=== PATIENT | female | born 1985 | race Caucasian/White ===

== ENCOUNTER 2017-05-19 17:45 | Emergency (ER) | payer BC ==
[2017-05-19 18:02] VITALS: BP 126/91
--- NOTE | 2017-05-19 20:06 | EDM.PDOCBH ---
ED HPI GENERAL MEDICAL PROBLEM - General Chief Complaint: Drug or Alcohol Abuse Stated Complaint: INSOMNIA Time Seen by Provider: 05/19/17 19:15 Source of Information: Reports: Patient History Limitations: Reports: No Limitations - History of Present Illness INITIAL COMMENTS - FREE TEXT/NARRATIVE: Patient is a 31-year-old female who presents to the ED unable to sleep. Patient states approximately 2 weeks ago she stopped Ativan. Patient was taking 1 mg at bedtime for 7 years. States 5 weeks ago they started weaning her off because the patient was wanting to go homeopathic. Since completely stopping the Ativan patient has not been sleeping well at night. She's feeling tremulous and anxious and feels like her heart is beating out of her chest at times. 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 She denies any excessive caffeine use. She does not smoke. She also does not use alcohol on a routine basis. She was smoking marijuana every day up until New Year's when you stopped. She is requesting I contact her PCP to discuss plan for further treatment. - Related Data Allergies Allergy/AdvReac Type Severity Reaction Status Date / Time amoxicillin trihydrate Allergy Rash Verified 05/19/17 17:57 [From Augmentin] codeine Allergy Rash Verified 05/19/17 17:57 potassium clavulanate Allergy Rash Verified 05/19/17 17:57 [From Augmentin] Home Meds: Home Meds Multivitamin [Multivitamins] 1 tab PO DAILY 06/11/14 [History] Calcium Carbonate [Calcium] 1 tab PO DAILY 12/16/15 [History] L.acidoph,Paracasei, B.lactis [Probiotic] 1 cap PO DAILY 12/16/15 [History] Ibuprofen [IJD: Ibuprofen] 600 mg PO Q4H PRN #30 tablet 12/17/15 [Rx] Citalopram Hydrobromide [Celexa] 10 mg PO DAILY #30 tablet 05/19/17 [Rx] QUEtiapine Fumarate [Seroquel Xr] 50 mg PO BEDTIME #30 tab.er.24h 05/19/17 [Rx] Tyrosine [l-Tyrosine] 1,000 mg PO DAILY 05/19/17 [History] Ubidecarenone [Co Q-10] 150 mg PO DAILY 05/19/17 [History] Past Medical History Psychiatric History: Reports: Anxiety - Past Surgical History HEENT Surgical History: Reports: Adenoidectomy, Tonsillectomy Female Surgical History: Reports: [place] Social & Family History - Tobacco Use Smoking Status *Q: Never Smoker Used Tobacco, but Quit: Yes Second Hand Smoke Exposure: No - Caffeine Use Caffeine Use: Reports: Coffee, Soda - Alcohol Use Days Per Week of Alcohol Use: 0 Number of Drinks Per Day: 0 Total Drinks Per Week: 0 - Recreational Drug Use Recreational Drug Use: Yes Drug Use in Last 12 Months: No Recreational Drug Type: Reports: Marijuana/Hashish Recreational Drug Use Frequency: Daily ED ROS GENERAL - Review of Systems Review Of Systems: ROS reveals no pertinent complaints other than HPI. ED EXAM, BEHAVIORAL HEALTH - Physical Exam Exam: See Below Exam Limited By: No Limitations General Appearance: Alert, WD/WN, Anxious Ears: Hearing Grossly Normal Nose: Normal Inspection Throat/Mouth: Normal Voice, No Airway Compromise Neck: Normal Inspection, Supple Respiratory/Chest: No Respiratory Distress, Lungs Clear, Normal Breath Sounds, No Accessory Muscle Use Cardiovascular: Normal Peripheral Pulses, Regular Rate, Rhythm, No Murmur Extremities: Normal Inspection Neurological: Alert, Normal Mood/Affect, CN II-XII Intact, Normal Cognition, No Motor/Sensory Deficits, Oriented x 3 Psychiatric: Alert, Normal Affect, Normal Cognition, Normal Mood, Oriented Skin Exam: Warm, Dry, Intact, Normal color COURSE, BEHAVIORAL HEALTH COMP - Course Vital Signs: Last Vital Signs Temp 98.1 F 05/19/17 17:57 Pulse 105 H 05/19/17 17:57 Resp 13 05/19/17 17:57 BP 126/91 H 05/19/17 17:57 Pulse Ox 100 05/19/17 17:57 Orders, Labs, Meds: Active Orders 24 hr Category Date Time Status EKG Documentation Completion [RC] STAT Care 05/19/17 20:06 Active Re-Assessment/Re-Exam: Spoke with patient's PCP Rebecca Levin have decided to start the patient on Celexa 10 mg every day and Seroquel 50 mg at at bedtime. Have patient call her office next week to see how she is doing and schedule follow-up appointment. Will obtain EKG due to combination of these two medications may cause QT prolongation. EKG sinus rhythm at a rate of [address] changes noted. [place] interval 137. QTC 423. Discussed this with the patient in great detail to which she has agreed. Discharge instructions as documented. Prescriptions provided. Departure - Departure Time of Disposition: 19:56 Disposition: Home, Self-Care 01 Condition: Good Clinical Impression: Anxiety - Discharge Information Prescriptions: Citalopram Hydrobromide [Celexa] 10 mg PO DAILY #30 tablet QUEtiapine Fumarate [Seroquel Xr] 50 mg PO BEDTIME #30 tab.er.24h Referrals: Rebecca Morse PA [Primary Care Provider] - Additional Instructions: As discussed will start you on Celexa 10 mg every day and also Seroquel 50 mg at at bedtime. Refrain from alcohol use. Call your primary care provider this coming week to schedule follow-up appointment. Seroquel may cause increased drowsiness so no driving after taking this medication. Return to the ED if you develop any new or worsening symptoms. - My Orders Last 24 Hours: My Active Orders 05/19/17 20:06 EKG Documentation Completion [RC] STAT - Assessment/Plan Last 24 Hours: My Active Orders 05/19/17 20:06 EKG Documentation Completion [RC] STAT
== END 2017-05-19 20:30 | disposition home or self-care (01) ==
LOC: JD.ED 17:45
DX: F41.9 Anxiety disorder, unspecified (principal); Z87.891 Personal history of nicotine dependence; Z79.899 Other long term (current) drug therapy; Z88.1 Allergy status to other antibiotic agents; Z88.5 Allergy status to narcotic agent
CPT/HCPCS: 93005; 99283-25; 99284

== ENCOUNTER 2022-11-09 11:12 | Emergency (ER) | payer BC ==
[2022-11-09] MEDS ORDERED: Ondansetron 4 MG/2 ML SDV IVPUSH ONE (12:10)
[2022-11-09] MEDS ORDERED: Sodium Chloride 0.9% 10 ML Syringe FLUSH PRN (12:10)
[2022-11-09] MEDS ORDERED: Sodium Chloride 0.9% 1,000 ML IV SCH (12:15)
[2022-11-09 12:38] LABS: BASOPHILS ABSOLUTE AUTO 0.02 K/mm3 (0.01-0.08); BASOPHILS PERCENT AUTO 0.4 % (0.1-1.2); EOSINOPHILS ABSOLUTE AUTO 0.12 K/mm3 (0.04-0.36); EOSINOPHILS PERCENT AUTO 2.5 (0.7-5.8); HEMATOCRIT 41.6 % (34.1-44.9); HEMOGLOBIN 13.6 gm/dl (11.2-15.7); IMMATURE GRAN ABSOLUTE AUTO 0.01 K/mm3 (0.00-0.10); IMMATURE GRAN PERCENT AUTO 0.2 % (<=1.0); LYMPHOCYTES ABSOLUTE AUTO 1.22 K/mm3 (1.18-3.74); LYMPHOCYTES PERCENT AUTO 25.6 % (19.3-51.7); MEAN CORPUSCULAR HEMOGLOBIN 28.6 pg (25.6-32.2); MEAN CORPUSCULAR HGB CONC 32.7 g/dl (32.2-35.5); MEAN CORPUSCULAR VOLUME 87.4 fl (79.4-94.8); MEAN PLATELET VOLUME 10.3 fl (9.4-12.3); MONOCYTES ABSOLUTE AUTO 0.46 K/mm3 (0.24-0.36); MONOCYTES PERCENT AUTO 9.7 % (4.7-12.5); NEUTROPHILS ABSOLUTE AUTO 2.93 K/mm3 (1.56-6.13); NEUTROPHILS PERCENT AUTO 61.6 % (34.0-71.1); PLATELET COUNT,PLT 282 K/mm3 (182-369); RED BLOOD CELL COUNT 4.76 M/mm3 (3.98-5.22); WHITE BLOOD CELL COUNT,WBC 4.76 K/mm3 (3.98-10.04)
[2022-11-09 12:45] LABS: APPEARANCE,URINE CLEAR (Clear); BILIRUBIN,URINE NEGATIVE (Negative); COLOR,URINE YELLOW (Yellow); GLUCOSE,URINE NEGATIVE (Negative); KETONES,URINE NEGATIVE (Negative); LEUKOCYTE ESTERASE,URINE NEGATIVE (Negative); NITRITE,URINE NEGATIVE (Negative); OCCULT BLOOD,URINE NEGATIVE (Negative); PROTEIN,URINE NEGATIVE (Negative); UROBILINOGEN,URINE 0.2 (0.2-1.0)
[2022-11-09 13:06] LABS: A/G RATIO 1.2 (1-2); ALANINE AMINOTRANSFERASE,ALT 20 U/L (14-59); ALBUMIN 3.9 g/dl (3.4-5.0); ALKALINE PHOSPHATASE 38 U/L (46-116); ASPARTATE AMNIOTRANSFERASE,AST 10 U/L (15-37); BILIRUBIN TOTAL 0.6 mg/dL (0.2-1.0); BLOOD UREA NITROGEN,BUN 10 mg/dL (7-18); BUN/CREATININE RATIO 12.5 (14-18); C-REACTIVE PROTEIN <0.2 mg/dL (<1.0); CARBON DIOXIDE,CO2 28 mEq/L (21-32); CHLORIDE,CL 106 mEq/L (98-107); CREATININE 0.8 mg/dL (0.55-1.02); EST CRCL DRUG DOSING (CG) 79.65 mL/min; ESTIMATED GFR 97 mL/min (>60); GLUCOSE RANDOM 87 mg/dL (70-99); MAGNESIUM 2.1 mg/dL (1.8-2.4); PROTEIN TOTAL,TP 7.3 g/dl (6.4-8.2); SODIUM,NA 141 mEq/L (136-145)
[2022-11-09 13:11] LABS: BACTERIA,URINE RARE /hpf (FEW); MUCUS,URINE NOT SEEN /hpf (FEW); RBC,URINE 0-5 /hpf (0-5); SQUAMOUS EPITHELIAL CELLS,UR 0-5 /hpf (0-5); WBC,URINE 0-5 /hpf (0-5)
[2022-11-09] MEDS ORDERED: Polyethylene Glycol/Electrolytes 4,000 ML Bottle PO ONE (13:55)
[2022-11-09] MEDS ORDERED: Polyethylene Glycol 3350 Powder 17 GM Packet PO ONE (13:55)
[2022-11-09 15:23] VITALS: BP 117/69; PULSE 93
== END 2022-11-09 14:33 | disposition home or self-care (01) ==
LOC: JD.ED 11:12
DX: K59.09 Other constipation (principal); Z88.0 Allergy status to penicillin; Z88.5 Allergy status to narcotic agent
CPT/HCPCS: 36415; 74176; 80053; 81001; 83735; 85025; 86140; 99284; A9270; J3490; J7030

== ENCOUNTER 2023-05-14 04:32 | Emergency (ER) | payer BC ==
[2023-05-14 04:43] VITALS: BP 144/96; PULSE 75
== END 2023-05-14 05:58 | disposition home or self-care (01) ==
LOC: JD.ED 04:32
DX: G89.29 Other chronic pain (principal); R10.9 Unspecified abdominal pain; Z88.8 Allergy status to other drugs, medicaments and biological substances; Z79.899 Other long term (current) drug therapy
CPT/HCPCS: 99283

== ENCOUNTER 2023-06-19 20:37 | Emergency (ER) | payer BC ==
[2023-06-19 20:57] VITALS: BP 138/100; PULSE 85
== END 2023-06-19 22:45 | disposition left against medical advice (07) ==
LOC: JD.ED 20:37
DX: Z53.21 Procedure and treatment not carried out due to patient leaving prior to being seen by health care provider (principal)